=== PATIENT | male | born 1995 | race Caucasian/White ===

== ENCOUNTER 2018-10-11 09:04 | Inpatient (IN) ==
[2018-10-11] MEDS ORDERED: NS 1,000 ML IV ONE ×2 (09:12→19:34)
[2018-10-11] MEDS ORDERED: HUMULIN R 100 UNIT in NS 100 ML IV SCH (09:15)
--- NOTE | 2018-10-11 09:27 | EKG Report ---
Test Performed on : 10/11/2018 09:25:36 AM Test Reason : DKA Blood Pressure : / mmHG Vent. Rate : 105 BPM Atrial Rate : 105 BPM P-R Int : 224 ms QRS Dur : 082 ms QT Int : 312 ms P-R-T Axes : 000 -10 159 degrees QTc Int : 412 ms Sinus tachycardia. with 1st degree AV block. Low voltage QRS ST & T wave abnormality, consider lateral ischemia Abnormal ECG When compared with ECG of 28-AUG-2014 15:24, ID interval has increased Questionable change in QRS axis ST now depressed in Anterior leads Nonspecific T wave abnormality now evident in Inferior leads T wave inversion now evident in Lateral leads Unconfirmed Result
[2018-10-11] MEDS ORDERED: HUMULIN R IV ONE (09:39)
[2018-10-11] MEDS: LEVOPHED 8 MG in D5 1/2 NS 250 ML IV SCH ×3 (09:41→20:19)
[2018-10-11 09:45] LABS: BASO# 0.04 X1000 (0.0-0.2); BASO% 0.2 % (0.0-0.8); EOS# 0.02 X1000 (0.0-0.7); EOS% 0.1 % (0.0-10.0); HEMATOCRIT 37.7 % (42.0-52.0); HEMOGLOBIN 12.3 g/dL (14.0-18.0); IMM GRAN# 0.15 X1000 (0.0-0.04); IMM GRAN% 0.8 % (0.0-0.5); LYMPH# 1.48 X1000 (1.2-3.4); LYMPH% 7.9 % (20.5-51.1); MCH 29.7 PG (27-31); MCHC 32.6 g/dL (33-37); MCV 91.1 FL (81-99); MONO# 1.41 X1000 (0.11-0.59); MONO% 7.5 % (1.7-9.3); MPV 13.3 FL (7.4-10.4); NEUT# 15.74 X1000 (1.4-6.5); NEUT% 83.5 % (42.2-75.2); PLT 266 X1000 (130-400); RBC 4.14 XMIL (4.7-6.1); RDW 17.1 % (11.5-14.5); WBC 18.84 X1000 (4.8-10.8)
[2018-10-11 09:51] LABS: ALLEN TEST NO; BLOOD TYPE ARTERIAL; HCO3-(ACT) 4.7 mmoll (20.0-26.0); METHB 0.5 % (0.0-1.5); O2(CT) 17.5 mL/dL (15.0-23.0); O2HB 98.9 % (95.0-99.0); PO2(98.6) 238 mmHg (60-100); SAMPLE BLOOD; SAO2 100.9 % (95.0-100.0); THB 12.2 g/dL (11.5-17.4)
[2018-10-11 09:53] LABS: URINE SOURCE CLEAN CATCH
[2018-10-11 09:54] LABS: MODALITY NRB
[2018-10-11 09:55] LABS: PCO2(98.6) 13 mmHg (35-45); pH(98.6) 7.01 (7.35-7.45)
[2018-10-11 09:55] LABS: BILIRUBIN URINE NEGATIVE (NEGATIVE); BLOOD URINE TRACE (NEGATIVE); COLOR YELLOW; GLUCOSE URINE >1000 mg/dL (NEGATIVE); KETONE URINE >150 mg/dL (NEGATIVE); LEUKOCYTES URINE NEGATIVE (NEGATIVE); NITRITE URINE NEGATIVE (NEGATIVE); PROTEIN URINE 200 mg/dL (NEGATIVE); SP GRAVITY URINE 1.021; TURBIDITY URINE CLEAR (CLEAR); UROBILINOGEN URINE NORMAL (NORMAL)
[2018-10-11 09:57] LABS: UR EPITHELIAL CELLS <10 /HPF (<10); URINE BACTERIA NEGATIVE /HPF; URINE RBC <10 /HPF (<10); URINE WBC <10 /HPF (<10)
--- NOTE | 2018-10-11 10:00 | Diag Imaging Result Doc PS360 ---
EXAM: CHEST-1 VIEW HISTORY: dka TECHNIQUE: Chest single view COMPARISON: 07/02/2018 FINDINGS: The lungs are well expanded. The heart is enlarged. The vessels are not distended. There are no infiltrates. No effusion identified. There are rods in the thoracic and lumbar spine. IMPRESSION: Cardiomegaly Electronically signed by Kiko Riojas 10/11/2018 9:58 AM
[2018-10-11 10:03] LABS: ACETONE SERUM MODERATE (NEGATIVE)
[2018-10-11 10:15] LABS: AGAP 39; ALB/GLOB RATIO 1.9; ALBUMIN 4.6 g/dL (3.5-5.0); ALKALINE PHOSPHATASE 81 U/L (32-122); BUN 31 mg/dL (8-22); CALCIUM 9.3 mg/dL (8.8-10.2); CHLORIDE 93 mmol/L (98-107); COSMO 312; CREATININE 2.1 mg/dL (0.7-1.2); ESTIMATED GFR 39; GOT 149 U/L (10-34); GPT 111 U/L (10-44); POTASSIUM 5.5 mmol/L (3.5-5.1); SODIUM 138 mmol/L (136-145); TCO2 6 mmol/L (25-35); TOTAL BILIRUBIN 0.73 mg/dL (0.20-1.00)
[2018-10-11 10:16] LABS: GLUCOSE 635 mg/dL (70-104)
[2018-10-11] MEDS ORDERED: SODIUM BICARBONATE 8.4% IV ONE (10:25)
[2018-10-11 10:28] LABS: INR 1.68; PROTIME 21.1 Seconds (11.0-16.0)
[2018-10-11 10:29] LABS: PTT 32.4 Seconds (22.3-41.8)
--- NOTE | 2018-10-11 10:34 | PROVIDER DOCUMENTATION ---
This chart was entered by Leona Gupta Scribe, acting as scribe for Ulises Avalos MD. HPI-General Adult - General Chief Complaint: High Blood Sugar Stated Complaint: dka Time Seen by Provider: 10/11/18 09:09 Source: patient, family, EMS Unable to obtain history due to:: altered Allergies/Adverse Reactions: Patient Allergies Allergy/AdvReac Type Severity Reaction Status Date / Time codeine [Codeine] AdvReac Intermediate Unknown Verified 10/11/18 10:03 hydrocodone [Hydrocodone] AdvReac Intermediate Unknown Verified 10/11/18 10:03 Home Medications: Home Medication List Medication Instructions Recorded Confirmed Last Taken Type Gabapentin 300 mg PO TID 07/10/15 07/02/18 07/02/18 History Polyethylene Glycol 3350 [Miralax] 17 gm PO DAILY 07/10/15 07/02/18 07/02/18 History Quetiapine Fumarate [Seroquel] 250 mg PO HS 07/10/15 07/02/18 07/01/18 History Amoxicillin/Pot Clavulanate 875 mg PO Q12HR #20 tab 07/02/18 Unknown Rx [Augmentin] Benzonatate 200 mg PO TID 07/02/18 07/02/18 07/02/18 History Lisinopril 2.5 mg PO DAILY 07/02/18 07/02/18 07/02/18 History Metformin E.r. [Glucophage Xr] 500 mg PO BID CC 07/02/18 07/02/18 07/02/18 History Metoprolol [Lopressor] 12.5 mg PO DAILY 07/02/18 07/02/18 07/02/18 History Omeprazole [Prilosec] 20 mg PO DAILY 07/02/18 07/02/18 07/02/18 History ROSUVAstatin [Crestor] 20 mg PO QHS 07/02/18 07/02/18 07/01/18 History Sitagliptin Phos/Metformin HCl 1 each PO BID 07/02/18 07/02/18 07/02/18 History [Janumet 50-500 mg Tablet] - History of Present Illness -Gen Adult Nature of Presenting Problems: 23 yom presents to the ed via ems with elevated BGL reading high. per family pt has had increased urination, increased thirst and elevated BGL for 1 week. pt on exam presents with kussmaul respirations, ams. pt is legally blind and deaf so communication is difficult per ems pt had low O2 sat when aos and pt was bagged briefly and O2 sat reached normal limits, pt has been hypotensive but that has improved as well since being in the ed Location of Pain/Injury: reports: none Pain Radiation: reports: no radiation Severity: reports: moderate Onset/Duration: reports: 1 week ago Timing: reports: still present Context/Activities at Onset: reports: light activity Associated Symptoms: reports: malaise, shortness of breath, weakness. denies: back/neck pain, chest pain, fever/chills, nausea, vomiting Similar Symptoms Previously?: Yes (hx of dm) Recently seen or treated by another doctor?: No - Diabetes Related Context Context: reports: high blood sugar, change in mental status, unresponsive, prior DKA hospitalization Review of Systems - Adult - REVIEW OF SYSTEMS - ADULT ROS:: ROS per family Constitutional: reports: fatique. denies: chills, fever Eyes: reports: no symptoms reported Ears, Nose, Mouth & Throat: reports: no symptoms reported Cardiovascular: denies: chest pain, palpitations Respiratory: reports: see HPI, shortness of breath. denies: wheezing Gastrointestinal: denies: abdominal pain, diarrhea, nausea, vomiting Genitourinary: reports: see HPI, frequency Musculoskeletal: reports: muscle weakness. denies: back pain, neck pain Integumentary: reports: no symptoms reported Neurological: denies: dizziness/vertigo, headache/migraines Psychiatric: reports: no symptoms reported Endocrine: reports: see HPI, increased thirst, polyuria Hematologic/Lymphatic: reports: no symptoms reported Allergic/Immunologic: reports: no symptoms reported All Other Systems: Reviewed and Negative Past History - Adult - PAST MEDICAL HISTORY-ADULT Review of Records: reports: Nursing Assessment Review, Medications Reviewed Major Childhood Illnesses: reports: denies history Cardiovascular: reports: denies history Respiratory: reports: denies history Gastrointestinal: reports: denies history Genitourinary: reports: denies history Musculoskeletal: reports: denies history 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, other (freidrich's ataxia; quadriparesis; blindness; severe hearing impairment) Psychiatric: reports: anxiety Endocrine/Immune: reports: Diabetes Other Conditions: reports: blindness, deaf/hard of hearing - PRIOR SURGERIES/PROCEDURES Surgical/Procedure History: reports: back/neck (spinal fusion), other (fedrick ataxia) - IMMUNIZATION STATUS Childhood Immunizations: See Nurse Assessment Flu Vaccine: See Nurse Assessment - FAMILY HISTORY Family History: reviewed, not pertinent - SOCIAL HISTORY Smoking: non-smoker Substance Use: none/never Living Situation: family Physical Exam-General - PHYSICAL EXAM-ADULT Initial Vital Signs Reviewed: Yes - CONSTITUTIONAL General Appearance: moderate distress, thin, lethargic, slow to respond. negative: appears well, alert - EYES Eyes: pink conjunctivae, other (blind) - HEAD, EARS, NOSE, MOUTH & THROAT HENMT: moist mucous membranes - NECK Neck: normal inspection - RESPIRATORY Respiratory: chest non-tender, lungs clear, normal breath sounds, increased rate (23) - CARDIOVASCULAR Cardiovascular: normal peripheral pulses, tachycardia (110) - GASTROINTESTINAL (ABDOMEN) Abdominal Exam: normal bowel sounds, non tender, soft - LYMPHATIC Lymphatic: no adenopathy - MUSCULOSKELETAL Back Exam: no CVA tenderness, no vertebral tenderness Extremity: no pedal edema, no calf tenderness, normal capillary refill - SKIN Integumentary: normal color, normal turgor, warm/dry - PSYCHIATRIC Psych/Mental Status: disoriented x 3, other (pt is legally blind and deaf) Progress - PLAN OF CARE/RESULTS Progress/Plan/Lab Results: Vital Signs - 8 hr 10/11/18 09:17 Temperature 97.5 F L Pulse Rate 110 H Respiratory Rate 23 Blood Pressure 89/54 O2 Sat by Pulse Oximetry 97 Laboratory Results - last 24 hr 10/11/18 10/11/18 10/11/18 09:12 09:27 09:27 WBC 18.84 H RBC 4.14 L Hgb 12.3 L Hct 37.7 L MCV 91.1 MCH 29.7 MCHC 32.6 L RDW Std Deviation 17.1 H Plt Count 266 MPV 13.3 H Immature Gran % (Auto) 0.8 H Neut % (Auto) 83.5 H Lymph % (Auto) 7.9 L Peach % (Auto) 7.5 Eos % (Auto) 0.1 Baso % (Auto) 0.2 Immature Gran # (Auto) 0.15 H Neut # (Auto) 15.74 H Lymph # (Auto) 1.48 Peach # (Auto) 1.41 H Eos # (Auto) 0.02 Baso # (Auto) 0.04 Specimen Type Sample Site pH pCO2 pO2 HCO3 Base Excess Oxyhemoglobin ABG O2 Sat (Calculated) ABG O2 Saturation ABG Carboxyhemoglobin ABG Methemoglobin Srikanth Test A-a O2 Difference Total Hemoglobin Lactate Liter Flow Blood Gas Modality FiO2 % POC Glucose 500 H Urine Source CLEAN CATCH Urine Color YELLOW Urine Turbidity CLEAR Urine pH 6.0 Ur Specific [place] 1.021 Urine Protein 200 A Ur Glucose (Stick) >1000 A Ur Ketones (Stick) >150 A Urine Blood TRACE A Urine Nitrite NEGATIVE Urine Bilirubin NEGATIVE Urobilinogen Dipstick NORMAL Urine Leukocytes NEGATIVE Urine WBC (Auto) <10 Urine RBC (Auto) <10 U Epithel Cells (Auto) <10 Urine Bacteria (Auto) NEGATIVE 10/11/18 09:43 WBC RBC Hgb Hct MCV MCH MCHC RDW Std Deviation Plt Count MPV Immature Gran % (Auto) Neut % (Auto) Lymph % (Auto) Peach % (Auto) Eos % (Auto) Baso % (Auto) Immature Gran # (Auto) Neut # (Auto) Lymph # (Auto) Peach # (Auto) Eos # (Auto) Baso # (Auto) Specimen Type ARTERIAL Sample Site L BRACHIAL pH 7.01 L* pCO2 13 L* pO2 238 H HCO3 4.7 L Base Excess -26.0 L Oxyhemoglobin 98.9 ABG O2 Sat (Calculated) 17.5 ABG O2 Saturation 100.9 H ABG Carboxyhemoglobin 1.50 ABG Methemoglobin 0.5 Srikanth Test NO A-a O2 Difference 459.0 Total Hemoglobin 12.2 Lactate 3.00 H Liter Flow 15.0 Blood Gas Modality NRB FiO2 % 100.0 POC Glucose Urine Source Urine Color Urine Turbidity Urine pH Ur Specific [place] Urine Protein Ur Glucose (Stick) Ur Ketones (Stick) Urine Blood Urine Nitrite Urine Bilirubin Urobilinogen Dipstick Urine Leukocytes Urine WBC (Auto) Urine RBC (Auto) U Epithel Cells (Auto) Urine Bacteria (Auto) Orders Category Date Time Status Finger Stick Blood Sugar (ED) DIRECTED Care 10/11/18 09:12 Active PICC Line Consult Routine Cons 10/11/18 09:34 Active CHEST-1 VIEW [RAD] Stat Exams 10/11/18 09:[address] HEAD W/O CONTRAST [CT] Stat Exams 10/11/18 09:14 Ordered ABG [RESP] Routine Lab 10/11/18 09:43 Completed ACETONE SERUM [CHEM] Stat Lab 10/11/18 09:27 Received CBC WITH ELECTRONIC DIFF [HEME] Stat Lab 10/11/18 09:27 Completed COMPREHENSIVE METABOLIC PANEL [CHEM] Stat Lab 10/11/18 09:27 Received LACTATE, PLASMA [CHEM] Stat Lab 10/11/18 09:27 Received PT [PROTIME WITH INR] [COAG] Stat Lab 10/11/18 09:27 Received PTT [COAG] Stat Lab 10/11/18 09:27 Received TROPONIN T Stat Lab 10/11/18 09:27 Received URINALYSIS [URINALYSIS] Stat Lab 10/11/18 09:27 Completed 0.9% Sodium Chloride Inj [Ns] 1,000 ml Med 10/11/18 09:12 Active IV 999 mls/hr 0.9% Sodium Chloride Inj [Ns] 100 ml Med 10/11/18 09:15 Active Insulin Human Regular [Humulin R] 100 unit IV Per Protocol mls/hr Dextrose 5%-0.45% NaCl Inj [D5 1/2 Ns] 250 ml Med 10/11/18 09:45 Active Norepinephrine [Levophed] 8 mg IV As Directed mls/hr Insulin Human Regular [Humulin R] Med 10/11/18 09:39 Discontinued 10 unit IV NOW ONE EKG [EKG] Stat Ther 10/11/18 09:10 Draft pt is waiting on PICC line placement from PICC team today 1109 pt has NG tube in place and has fecal material coming from NG tube. dr avalos is aware 1128 PICC line team is at bedside with pt Result Diagrams: 10/11/18 09:27 10/11/18 09:27 - REASSESSMENT Reassessment #1 Time Reassessed: 10:01 (BP has increased and pt is resting in bed with family at bedside) Status: improving Reassessment Comment: pt is in DKA/ at bedside Reassessment #2 Time Reassessed: 10:18 Status: unchanged Reassessment Comment: at bedside Reassessment #3 Time Reassessed: 10:48 (pt BP 83/63 HR 133 ) Status: worsening (1050) Reassessment Comment: at bedside pt will be intubated - EKG 1 Time of EKG reading by physician:: 09:25 EKG Read and Signed by:: Ulises Avalos EKG Interpretation (*Must complete 3 of following elements*): Abnormal Rate: 105 Rhythm: sinus tachycardia with 1st deggree av block [place]: normal QRS: other (low voltage qrs) MD Interval: normal ST Wave: normal Comments: st and t wave abnormality, consider lateral ischemia 2 Time of EKG reading by physician:: 10:44 EKG Read and Signed by:: Ulises Avalos EKG Interpretation (*Must complete 3 of following elements*): Abnormal Rate: 118 Rhythm: atrial fib with rvr [place]: normal (indeterminate axis) QRS: other (low voltage qrs) MD Interval: normal Prior EKG Comparison: changes noted Comments: sta nd t wave abnormality, consider anterolateral ischemia - XRAY 1 XRAY: Bilateral XRAY Study: Chest Impression: See EMR Report (EXAM: CHEST-1 VIEW HISTORY: dka TECHNIQUE: Chest single view COMPARISON: 07/02/2018 FINDINGS: The lungs are well expanded. The heart is enlarged. The vessels are not distended. There are no infiltrates. No effusion identified. There are rods in the thoracic and lumbar spine. IMPRESSION: Cardiomegaly Electronically signed by Kiko Riojas 10/11/2018 9:58 AM 10/11/18 0958 Interpreting Physician: Kiko Riojas MD Dictated Date/Time: 10/11/18 0957 cc: Ulises Avalos MD; Tim Leyva Jr, MD) 3 XRAY: Bilateral XRAY Study: Chest Impression: See EMR Report (CHEST-PORTABLE - 10/11/2018 11:14 AM INDICATION: endotracheal tube placement COMPARISON: 9:50 AM FINDINGS: There is a new endotracheal tube in good position at T3-T4. There is a nasogastric tube in good position with the tip in the stomach. Stable cardiomegaly. No infiltrates or edema throughout the lungs. IMPRESSION: Good endotracheal tube and nasogastric tube placement. Electronically signed by Tim Gutierrez 10/11/2018 11:25 AM 10/11/18 1125 Interpreting Physician: Tim Gutierrez MD Dictated Date/Time: 10/11/18 1124 cc: Louise Menendez; Tim Leyva Jr, MD) - CT/MRI 1 CT Study: Head Impression: See EMR Report (CT HEAD W/O CONTRAST - 10/11/2018 INDICATION: AMS COMPARISON: None FINDINGS: The ventricles and sulci are normal in size and contour. No intracranial mass or hemorrhage. The skull is intact. The sinuses mastoids and middle ears are clear. IMPRESSION: Negative exam. This exam was performed using automated exposure control, adjustment of mA or kV according to patient size, and/or use of iterative reconstruction technique Electronically signed by Tim Gutierrez 10/11/2018 11:35 AM 10/11/18 1135 Interpreting Physician: Tim Gutierrez MD Dictated Date/Time: 10/11/18 1134 cc: Ulises Avalos MD; Tim Leyva Jr, MD) - CONSULTS/PCP/HOSPITALIST Notification #1 *Consult/PCP/Hospitalist*: hospitalist dr espinoza Time Discussed: 10:24 Reason/Comments: dka Consult Disposition: Admit Procedures - INTUBATION Time of Intubation: 10:53 Intubation Method: orotracheal Equipment: Glidescope Tube Size (cm): 7.5 Pretreated with 100% Oxygen?: Yes Breath Sounds after Intubation: equal ETT Primary Tube Confirmation: Capnometry CO2 Change, Direct Visualization, Chest Rise and Fall, Tube placement verified on XRAY Intubation Complications: no complications Vent Settings: See Respiratory Therapy Notes - ADDITIONAL PROCEDURES Additional Procedure: OTHER (EJ left side) Departure - Departure Date of Disposition Decision: 10/11/18 Time of Disposition Decision: 11:41 DIAGNOSIS: DKA (diabetic ketoacidoses), A-fib, Sepsis, LFT elevation, Elevated troponin, Renal insufficiency, GI bleed, Hypoxia Disposition: ADMITTED INPATIENT 09 Certified Medical Emergency: Emergent Condition: Serious - Critical Care Note This patient required my direct & personal management of CC.: Yes Total Time (mins): 42 Critical Care Statement: This patient required my direct personal management to treat or rule out processes, the absence of which, could potentiallly result in sudden, clinically significant life or limb threatening deterioration. Attestation - Physician/ WILLARD Attestation Patient care was provided by Advanced Practice Provider:: No The physician spent face to face time with patient:: Yes Advanced Practice Provider documentation review:: Supervising physician onsite and consulted in the evaluation and care of this patient. The physician did have a face to face encounter with the patient. This chart was documented by the indicated scribe, (Leona Gupta Scribe) and accurately reflects the services I performed and decisions made by me, Ulises Avalos MD, as attested by the provider's signature.
[2018-10-11 10:41] LABS: UR AMPHETAMINES QUAL NONE DETECTED (NONE DETECT); UR BARBITUATES QUAL NONE DETECTED (NONE DETECT); UR BENZODIAZEPIN QUAL NONE DETECTED (NONE DETECT); UR CANNABINOIDS QUAL NONE DETECTED (NONE DETECT); UR COCAINE QUAL NONE DETECTED (NONE DETECT); UR METHADONE QUAL NONE DETECTED (NONE DETECT); UR OPIATES QUAL NONE DETECTED (NONE DETECT); UR OXYCODONE QUAL NONE DETECTED (NONE DETECT); UR PCP QUAL NONE DETECTED (NONE DETECT)
[2018-10-11 10:42] LABS: MAGNESIUM 1.9 mg/dL (1.5-2.7); PHOSPHORUS 10.9 mg/dL (2.7-4.5)
[2018-10-11] MEDS ORDERED: AMIDATE ONE (10:45)
[2018-10-11] MEDS ORDERED: QUELICIN ONE (10:46)
[2018-10-11] MEDS ORDERED: SODIUM BICARBONATE 8.4% IV PUSH ONE (10:58)
[2018-10-11] MEDS ORDERED: DIPRIVAN 1% 1,000 MG/100 ML BOTTLE IV SCH (11:00)
[2018-10-11] MEDS ORDERED: VANCOMYCIN IV PER PHARMACY MISC SCH (11:00)
[2018-10-11] MEDS ORDERED: TYLENOL NG PRN (11:08)
[2018-10-11] MEDS ORDERED: ZOFRAN IV PRN (11:08)
[2018-10-11] MEDS ORDERED: SODIUM CHLORIDE 0.9% INJ SCH (11:15)
--- NOTE | 2018-10-11 11:17 | SEPSIS: TISSUE PERFUSION ASSMT ---
Sepsis: Tissue Perfusion Assmt - Physical Exam Assessment Date: 10/11/18 Time Assessment Initialized: 11:00 Vital Signs: Last Vital Signs Temp 97.5 F L 10/11/18 09:17 Pulse 145 H 10/11/18 10:40 Resp 25 H 10/11/18 10:40 BP 86/61 10/11/18 10:37 Pulse Ox 92 L 10/11/18 10:32 Height 5 ft 6 in Weight 125 lb Lung Sounds:: lungs clear Heart Sounds:: Irregular Peripheral Pulse Evaluation:: radial (R): 2+, radial (L): 2+, dorsalis-pedis (R): 1+, dorsalis-pedis (L): 1+ Skin Exam:: pale - Impression Impression:: Tissue Perfusion Inadequate - Plan Plan:: See Orders (levophed/IVFs ordered)
[2018-10-11] MEDS ORDERED: NS 250 ML ONE (11:23)
[2018-10-11] MEDS ORDERED: VERSED ONE (11:24)
--- NOTE | 2018-10-11 11:24 | HISTORY AND PHYSICAL ---
HISTORY OF PRESENT ILLNESS: He has a very attentive family. 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 He has lower lumbar sacral degenerative disk disease with juanito placement. He has severe hearing loss and loss of his eyesight. Today is Tuesday, and he started having nausea on Tuesday and Tuesday some more episodes, but seemed to be getting food down and otherwise unremarkable. This morning, he was found unresponsive. He does run high sugars according to family in the 300s and 400s. He has known diabetes. He is not on insulin. He is on metformin, and he is on some oral hypoglycemics I believe. Found unresponsive and when he came to the emergency room, he had some significant severe metabolic anion gap acidosis and white count was elevated at 18,000 with basically a left shift. He also had blood sugar of 635 and blood gases, pH was 7.01, pCO2 13, PO2 is 238. He seemed to be struggling to move air. So plan is to intubate him and admit him to the ICU. PAST MEDICAL HISTORY FROM FAMILY: 1. Friedreich's ataxia. 2. Hypertrophic cardiomyopathy. 3. Lower lumbar degenerative disk disease with juanito placement and stabilization. 4. Loss of hearing. 5. Loss of eyesight, legally deaf and blind. 6. Diabetes mellitus type 2, not on insulin. ALLERGIES: Codeine and hydrocodone make him very emotional. FAMILY HISTORY: Father they think may have had Friedreich's ataxia, possibly sister. The patient was diagnosed when he was 3. SOCIAL HISTORY: Negative for alcohol or tobacco. Very attentive family. REVIEW OF SYSTEMS: General: Unable to glean from patient, but the family collectively had not noticed any change in weight or significant fever or chills. HEENT: He is already very hard of hearing, legally deaf and blind. Neck: They have not noticed any swelling or neck pain. Respiratory: No increased work of breathing or dyspnea until recently this morning with rapid respirations. Cardiovascular: No chest pain or tachy palpitations. No complaints in that way, but the family did say maybe on Tuesday he complained of some chest pain. Gastrointestinal and Genitourinary: No gross hematuria or dysuria reported. Musculoskeletal/Neurologic: No focal changes. Endocrinologic hemologic: No significant history except for diabetes. PHYSICAL EXAMINATION: GENERAL: He is tachypneic. VITALS: Temperature is 97.5 degrees, pulse 145, appears to be sinus tachycardia. Respirations 25, blood pressure 86/61. Looking at the monitor, it is questionable that he had some atrial fibrillation as well or frequent PACs. No distended neck veins. Carotid, radial, and femoral pulses were symmetrical, 2+. EYES: Conjunctiva is pink. NECK: Supple. CARDIOVASCULAR: Regular rhythm, appears to be sinus tachycardia. PMI nondisplaced. LUNGS: Clear anterolateral. ABDOMEN: Soft. SKIN: Warm and dry. I did not appreciate any rashes or mucosal lesions. LABORATORY AND IMAGING: White count 18,840, hematocrit 37, platelet count 266,000. Sodium 138, potassium 5.5, chloride 93, BUN 31, creatinine 2.1. Blood sugar 635, phosphorus 10.9, magnesium 1.9. AST was 149, ALT was 111, alkaline phosphatase was 81. Troponin 0.984. Albumin 4.6. ProTime is 21, PTT is 32. Urine drug screen did show a moderate acetone level, otherwise negative for opiates, oxycodone, methadone, barbiturates, phencyclidine, amphetamines, benzodiazepines, urine cocaine screen and cannabinoids. Urine showed greater than 1000 blood sugar, ketones greater than 150. Chest x-ray: Cardiomegaly. No definite infiltrates. ASSESSMENT AND PLAN: 1. There appears to be severe diabetic ketoacidosis. I cannot rule out infection and sepsis, so obviously we will need to treat him for both. He will need liberal fluid. We will watch his electrolytes closely. He will need to be intubated to help compensate as he is wearing out and compensate for the metabolic acidosis. Family is aware. We will put on DKA protocol, giving him insulin and he will need to incorporate insulin on discharge and I do not think they will be able to maintain him on oral hypoglycemics anymore. 2. Friedreich's ataxia. Aware. 3. Hypertrophic cardiomyopathy. Aware. 4. Elevated troponin and this may be a kind of class 2 ischemia from the acidosis, but we are going to check serial cardiac enzymes, ask Cardiology help follow and may want to get an echocardiogram just to see how we are doing and see if anything has changed. We will keep check of his magnesium as well as his other electrolytes. We will check his thyroid, T4, TSH, and put him on broad-spectrum antibiotics. At this point we will use Zosyn and vancomycin. cc: Srikanth Banegas MD
--- NOTE | 2018-10-11 11:27 | Diag Imaging Result Doc PS360 ---
CHEST-PORTABLE - 10/11/2018 11:14 AM INDICATION: endotracheal tube placement COMPARISON: 9:50 AM FINDINGS: There is a new endotracheal tube in good position at T3-T4. There is a nasogastric tube in good position with the tip in the stomach. Stable cardiomegaly. No infiltrates or edema throughout the lungs. IMPRESSION: Good endotracheal tube and nasogastric tube placement. Electronically signed by Tim Gutierrez 10/11/2018 11:25 AM
[2018-10-11] MEDS ORDERED: VERSED IV ONE (11:29)
[2018-10-11] MEDS ORDERED: VERSED 100 MG in NS 80 ML IV SCH ×2 (11:30→14:00)
[2018-10-11] MEDS ORDERED: QUELICIN IV ONE (11:33)
[2018-10-11] MEDS ORDERED: AMIDATE IV ONE (11:33)
--- NOTE | 2018-10-11 11:37 | Diag Imaging Result Doc PS360 ---
CT HEAD W/O CONTRAST - 10/11/2018 INDICATION: AMS COMPARISON: None FINDINGS: The ventricles and sulci are normal in size and contour. No intracranial mass or hemorrhage. The skull is intact. The sinuses mastoids and middle ears are clear. IMPRESSION: Negative exam. This exam was performed using automated exposure control, adjustment of mA or kV according to patient size, and/or use of iterative reconstruction technique Electronically signed by Tim Gutierrez 10/11/2018 11:35 AM
[2018-10-11] MEDS ORDERED: SODIUM BICARBONATE 8.4% 100 MEQ in D5W 500 ML IV PRN (12:00)
[2018-10-11] MEDS ORDERED: POTASSIUM CHLORIDE 20% LIQUID PO PRN (12:00)
[2018-10-11] MEDS ORDERED: SODIUM PHOSPHATE 30 MMOL in D5W 250 ML IV PRN (12:00)
[2018-10-11] MEDS ORDERED: POTASSIUM CHLORIDE 20 MEQ/SWI 20 MEQ/100 ML IVPB IV PRN (12:00)
[2018-10-11] MEDS ORDERED: MAGNESIUM SULFATE 2 GM/S.W.I. 2 GM/50 ML IVPB IV PRN (12:00)
[2018-10-11] MEDS ORDERED: TYLENOL PR PRN (12:00)
[2018-10-11] MEDS ORDERED: POTASSIUM CHLORIDE 10% LIQUID PO PRN (12:00)
[2018-10-11] MEDS ORDERED: SODIUM BICARBONATE 8.4% 50 MEQ in D5W 250 ML IV PRN (12:00)
[2018-10-11] MEDS ORDERED: D50W SYRINGE IV PRN (12:00)
[2018-10-11] MEDS ORDERED: NS 3,000 ML ONE (12:01)
[2018-10-11] MEDS: NS 1,000 ML IV SCH ×6 (12:15→16:54)
--- NOTE | 2018-10-11 12:26 | Diag Imaging Result Doc PS360 ---
EXAM: CHEST-1 VIEW HISTORY: picc line placement TECHNIQUE: Chest single view COMPARISON: 11:14 AM FINDINGS: Interval placement of a right-sided PICC line. There are multiple overlying wires and mechanical hardware. However the tip appears to be near the junction of the superior vena cava and right subclavian vein. This should probably be advanced several centimeters. Electronically signed by Kiko Riojas 10/11/2018 12:23 PM
[2018-10-11 12:30] LABS: UR CREAT RANDOM 52.9 mg/dL (14-26)
[2018-10-11 12:36] LABS: ACETONE SERUM MODERATE (NEGATIVE)
[2018-10-11] MEDS: ZOSYN 2.25 GM in NS 50 ML IV SCH ×2 (12:40→21:13)
[2018-10-11 12:49] LABS: HEMOGLOBIN A1C 11.6 % (4.8-6.0)
[2018-10-11 12:54] LABS: AGAP 31; AMYLASE 61 U/L (20-200); BUN 30 mg/dL (8-22); CALCIUM 7.8 mg/dL (8.8-10.2); CHLORIDE 101 mmol/L (98-107); CK PROFILE 195 U/L (24-204); COSMO 309; ESTIMATED GFR 41; LIPASE 50 U/L (13-60); MAGNESIUM 1.5 mg/dL (1.5-2.7); PHOSPHORUS 8.4 mg/dL (2.7-4.5); POTASSIUM 4.3 mmol/L (3.5-5.1); SODIUM 139 mmol/L (136-145); TCO2 7 mmol/L (25-35)
[2018-10-11] MEDS: PROTONIX IV SCH ×2 (12:54→23:47)
[2018-10-11 12:58] LABS: IRON SATURATION 51 %; TIBC 199 ug/dL; TOTAL IRON 102 ug/dL (53-167); UNBOUND IRON 97 ug/dL (112-346)
[2018-10-11] MEDS ORDERED: VANCOMYCIN 1,700 MG in NS 250 ML IV ONE (13:00)
--- NOTE | 2018-10-11 13:02 | CARDIOLOGY CONSULTATION ---
DATE: 10/11/2018 HISTORY OF PRESENT ILLNESS: Cardiology was consulted. The patient is admitted with diabetic ketoacidosis, respiratory failure, is intubated. History was obtained from the chart and discussing with family. The patient has a history of Friedreich's ataxia, cardiomyopathy, with history of heart failure. Patient is followed up at the clinic at [facility]. He was last seen 3 to 4 months back and was at that time also noted to have pericardial effusion. Per family, he had an echocardiogram done again and there was an improvement in his pericardial effusion. They had an appointment to follow up with the oleo hasher and renderer later this month. 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 He is on diabetes medications. He has not been doing well for the last 2 to 3 days, having nausea and was not able to eat either. He was noted to be unresponsive. Sugars, according to family, in the 400s. He is a known diabetic, not on insulin. Patient came to the emergency room. Was noted to be having severe metabolic anion gap acidosis, elevated white count. Blood sugar was elevated at 635. PH of 7.01, pCO2 13, PO2 of 238. Increasing work of breathing was noted. Patient was intubated. REVIEW OF SYSTEMS: A 14 point review of systems could not be obtained. PAST MEDICAL HISTORY: 1. Friedreich's ataxia. 2. Cardiomyopathy. 3. Pericardial effusion. 4. The patient is handicapped, is wheelchair-bound, has loss of eyesight, is legally deaf and blind. 5. Diabetes. 6. Gastroesophageal reflux disease with esophageal dilatation in the past. 7. The patient has had surgery to his back, having had juanito placement for stabilization. ALLERGIES: Allergic to codeine and hydrocodone. He was diagnosed to have Friedreich's ataxia when he was 3. PHYSICAL EXAMINATION: On examination, blood pressure 86/61. Jugular venous pressure could not be assessed. Patient is intubated. First and second heart sounds noted. S3 gallop noted. Lungs: Scattered wheeze, anterolaterally clear. Abdomen was soft. Central nervous system could not be assessed. LABORATORY EXAMINATION: Revealed WBC 18.8, hemoglobin 12.3, hematocrit 37, platelet count of 266,000. Chemistry: Sodium 138, potassium 5.5, BUN 31, creatinine 2.1. AST 149, ALT 111. Troponin abnormal at 0.984. Plasma lactate 3.7. ASSESSMENT AND PLAN: 1. Mr. Taiwo Barrow is a 23-year-old, gentleman with a history of Friedreich's ataxia, cardiomyopathy, history of pericardial effusion, diabetes, is legally deaf and blind, is noted to have elevated blood sugars and respiratory distress. Patient was subsequently admitted. There appears to be diabetic ketoacidosis, is being treated as per protocol. 2. The patient has had cardiomyopathy and was recently diagnosed to have pericardial effusion with improvement, followed by cardiology at [facility]. We will obtain records of the same. Chest x-ray revealed severe cardiomegaly. We will get an echocardiogram to reassess cardiac and valvular function, in addition to assess for pericardial effusion. 3. He is hypotensive. He is on pressors, Levophed. HOME MEDICATIONS: Listed include: 1. Gabapentin. 2. Seroquel 200 at bedtime. 3. Benzonatate. 4. Lisinopril 2.5 mg. 5. Metformin 500 b.i.d. 6. Metoprolol 12.5 mg daily. 7. Omeprazole. 8. Crestor 20. 9. Janumet 50/500 one tablet b.i.d. 10. Antibiotics. He has an abnormal troponin. We will get serial cardiac enzymes. This could be secondary to demand ischemia. How ever given the level of troponin elevation nonqMI is likely. will get serial cardiac enzymes He has abnormal liver function tests, renal functions as well, likely associated with the sepsis. Blood cultures are pending. Urinalysis was positive for ketones. Further cultures are pending. Continue supportive care. We will follow hospital course. cc: Morales Nuñez MD [facility]
[2018-10-11 13:03] LABS: GLUCOSE 559 mg/dL (70-104)
[2018-10-11 13:05] LABS: FREE T4 0.95 ng/dL (0.93-1.70)
[2018-10-11 13:07] LABS: TSH 6.01 uIUmL (0.27-4.20)
--- NOTE | 2018-10-11 13:07 | EKG Report ---
Test Performed on : 10/11/2018 10:44:33 AM Test Reason : afib vs tachycardia Blood Pressure : / mmHG Vent. Rate : 118 BPM Atrial Rate : 120 BPM P-R Int : 000 ms QRS Dur : 084 ms QT Int : 344 ms P-R-T Axes : 000 -08 100 degrees QTc Int : 482 ms Atrial fibrillation. with rapid ventricular response. Indeterminate axis Low voltage QRS ST & T wave abnormality, consider anterolateral ischemia Abnormal ECG When compared with ECG of 11-OCT-2018 09:25, (Unconfirmed) Atrial fibrillation. has replaced Sinus rhythm. Nonspecific T wave abnormality no longer evident in Inferior leads T wave inversion more evident in Anterior leads Nonspecific T wave abnormality has replaced inverted T waves in Lateral leads Unconfirmed Result
[2018-10-11 13:46] LABS: ALLEN TEST NO; BLOOD TYPE ARTERIAL; SAMPLE BLOOD; SRATE 24 BPM; TVOL 500 mL
[2018-10-11 13:50] LABS: BE -21.5 mmoll (-3.0-3.0); HCO3-(ACT) 8.2 mmoll (20.0-26.0); METHB 0.8 % (0.0-1.5); O2(CT) 16.6 mL/dL (15.0-23.0); O2HB 98.1 % (95.0-99.0); PO2(98.6) 331 mmHg (60-100); SAO2 99.7 % (95.0-100.0); THB 11.4 g/dL (11.5-17.4)
[2018-10-11 13:53] LABS: PCO2(98.6) 15 mmHg (35-45); pH(98.6) 7.15 (7.35-7.45)
[2018-10-11 13:54] LABS: MODALITY VENTILATOR
--- NOTE | 2018-10-11 14:39 | Diag Imaging Result Doc PS360 ---
CHEST-1 VIEW - 10/11/2018 2:23 PM INDICATION: picc line placement COMPARISON: 12:15 PM FINDINGS: The right PICC line has been advanced and the catheter tip is now at the lower SVC. The endotracheal tube and nasogastric tubes appear to be in good position. IMPRESSION: Good support line and tube placement. Electronically signed by Tim Gutierrez 10/11/2018 2:37 PM
[2018-10-11] MEDS ORDERED: D5 NS 1,000 ML IV SCH (15:00)
[2018-10-11 15:32] LABS: FERRITIN 38104 ng/mL (30-400)
[2018-10-11 15:32] LABS: BASO# 0.03 X1000 (0.0-0.2); BASO% 0.1 % (0.0-0.8); EOS# 0.01 X1000 (0.0-0.7); HEMATOCRIT 34.1 % (42.0-52.0); HEMOGLOBIN 11.5 g/dL (14.0-18.0); IMM GRAN# 0.12 X1000 (0.0-0.04); IMM GRAN% 0.6 % (0.0-0.5); LYMPH# 2.37 X1000 (1.2-3.4); LYMPH% 11.6 % (20.5-51.1); MCH 29.5 PG (27-31); MCHC 33.7 g/dL (33-37); MCV 87.4 FL (81-99); MONO# 0.75 X1000 (0.11-0.59); MONO% 3.7 % (1.7-9.3); MPV 12.9 FL (7.4-10.4); PLT 226 X1000 (130-400); RDW 16.6 % (11.5-14.5); WBC 20.48 X1000 (4.8-10.8)
[2018-10-11] MEDS ORDERED: CORDARONE 360 MG/D5W 360 MG/200 ML IV.SOLN IV ONE (15:37)
[2018-10-11] MEDS ORDERED: CORDARONE 150 MG/D5W 150 MG/100 ML IV.SOLN IV ONE (15:37)
[2018-10-11] MEDS: ATROVENT NEB INH SCH ×2 (15:38→21:10)
[2018-10-11] MEDS: XOPENEX NEB INH SCH ×2 (15:38→21:10)
--- NOTE | 2018-10-11 16:31 | ECHO REPORT ---
ORDER DATE: 10/11/2018 INTERPRETING PHYSICIAN: Dr. Malagon CLINICAL INDICATIONS: 23-year-old with heart failure, nonischemic cardiomyopathy. M-MODE MEASUREMENTS: Left ventricle end diastole: 4.6 cm. Left ventricle end systole: 4.3 cm. Posterior wall: 1.3 cm. Interventricular septum: 1.2 cm. Left atrium: Not specified here. Aortic root: 2.2 cm. SUMMARY OF 2-DIMENSIONAL IMAGIN. The left ventricular chamber appears to be dilated and the left ventricular systolic function is severely impaired. Visually, ejection fraction in the order of 15%. 2. The patient is in atrial fibrillation. 3. The right ventricle shows mild degree of hypertrophy also as well as the left ventricle. 4. The right ventricular chamber is dilated. 5. Both atria appear to be dilated more so the right than the left. 6. There is suggestion of a catheter in the right atrium. 7. There is a dediv-ag-xnmccffh pericardial effusion without signs of tamponade. 8. The mitral valve shows no significant regurgitation. 9. Pulse wave Doppler of mitral inflow shows single filling wave. 10.The inferior vena cava appears to be upper limits of normal/slightly dilated. 11.The patient appears to be in a low cardiac output state. 12.There is qxth-ul-oaerucao tricuspid valve regurgitation and there is no significant pulmonic valve abnormality. 13.Mild degree of pulmonary valve regurgitation appears to be present. 14.Aortic valve has 3 cusps and there is no regurgitation noted. 15. Consider infiltrative cardiomyopathy in the differential diagnosis of this case (i.e. Fabry's disease). Clinical correlation is recommended. cc: MD Louise Yadav CRNP MTDD
[2018-10-11 16:50] LABS: AGAP 25; BUN 29 mg/dL (8-22); CHLORIDE 108 mmol/L (98-107); COSMO 302; CREATININE 1.4 mg/dL (0.7-1.2); ESTIMATED GFR > 60; GLUCOSE 397 mg/dL (70-104); MAGNESIUM 1.3 mg/dL (1.5-2.7); POTASSIUM 3.3 mmol/L (3.5-5.1); SODIUM 140 mmol/L (136-145); TCO2 7 mmol/L (25-35)
[2018-10-11] MEDS: POTASSIUM CHLORIDE 40 MEQ/SWI 40 MEQ/100 ML IVPB IV PRN (17:38)
[2018-10-11] MEDS: HUMULIN R 100 UNIT in NS 99 ML IV SCH ×2 (18:29→21:57)
[2018-10-11] MEDS ORDERED: NS 1,000 ML IV SCH ×2 (18:45→19:30)
[2018-10-11 19:00] LABS: CALCIUM 8.1 mg/dL (8.8-10.2); CREATININE 1.8 mg/dL (0.7-1.2); MAGNESIUM 1.4 mg/dL (1.5-2.7); POTASSIUM 3.4 mmol/L (3.5-5.1)
[2018-10-11 19:01] LABS: CK INDEX 9.5 (0.0-2.5); CK-MB 27.14 ng/mL (0.0-5.0)
[2018-10-11] MEDS ORDERED: NS 500 ML ONE (19:39)
[2018-10-11 19:48] LABS: ALLEN TEST YES; BE -18.9 mmoll (-3.0-3.0); BLOOD TYPE ARTERIAL; HCO3-(ACT) 10.2 mmoll (20.0-26.0); METHB 0.7 % (0.0-1.5); O2(CT) 16.6 mL/dL (15.0-23.0); O2HB 98.1 % (95.0-99.0); PO2(98.6) 415 mmHg (60-100); SAMPLE BLOOD; SAO2 99.6 % (95.0-100.0); SRATE 24 BPM; THB 11.2 g/dL (11.5-17.4); TVOL 700 mL; pH(98.6) 7.28 (7.35-7.45)
[2018-10-11 19:52] LABS: MODALITY VENTILATOR; PCO2(98.6) 11 mmHg (35-45)
[2018-10-11] MEDS ORDERED: MAGNESIUM SULFATE 2 GM/S.W.I. 2 GM/50 ML IVPB IV ONE (19:52)
[2018-10-11] MEDS ORDERED: DOPAMINE 400 MG/D5W 400 MG/500 ML IV.SOLN IV SCH (20:00)
[2018-10-11] MEDS: DOPAMINE 800 MG/D5W 800 MG/500 ML IV.SOLN IV SCH (20:00)
[2018-10-11] MEDS ORDERED: DOPAMINE 800 MG/D5W 800 MG/500 ML IV.SOLN ONE (20:02)
[2018-10-11] MEDS ORDERED: NEO-SYNEPHRINE 50 MG in NS 250 ML IV SCH (20:15)
--- NOTE | 2018-10-11 21:02 | PULMONOLOGY CONSULTATION ---
DATE: 10/11/2018 REQUESTING PHYSICIAN: Dr. Srikanth Banegas. REASON FOR CONSULTATION: Respiratory failure. HISTORY OF PRESENT ILLNESS: Mr. Mcgee is a 23-year-old who was diagnosed with Friedreich's ataxia at the age of 3. The patient has advanced disease with hearing loss and blindness. The patient has been followed at [facility] for cardiomyopathy. The patient also has diabetes mellitus which is a complication of Friedreich's ataxia. The patient has been ill for the last two days with episodes of nausea and decreased p.o. intake. The patient's blood sugars have been elevated. He was brought to the emergency room with 2 small respirations. He was hypotensive and tachycardic upon arrival. White blood count was elevated. UA revealed elevated sugar and ketones. Chemistry review revealed a blood glucose of 635 and a serum bicarbonate of 6. CT scan of the brain was unremarkable. The patient was intubated and initiated on mechanical ventilation. He has undergone an echocardiogram which reveals an ejection fraction of 15% with a small to moderate pericardial effusion without signs of tamponade. The patient has been hypotensive and has been initiated on Levophed. He has had volume resuscitation. A CVP was placed by this practitioner and is elevated at 24. Dopamine is being added to his current regimen. PAST MEDICAL HISTORY: 1. Friedreich's ataxia as per above. 2. Cardiomyopathy with pericardial effusion, as per above. 3. Status post spinal stabilization with juanito placement. 4. Legally deaf. 5. Legally blind. 6. Type 2 diabetes mellitus. FAMILY HISTORY: Positive for Friedreich's ataxia. SOCIAL HISTORY: Negative for alcohol or tobacco. PHYSICAL EXAMINATION: General: Reveals a frail, cachectic white male on mechanical ventilation. BP 75/56, heart rate 89, respiratory rate 24. Oxygen saturation not trending. HEENT: Pupils are equal. Oropharynx appears clear. Neck: Supple. Chest: Reveals good air entry bilaterally. Cardiac: Distant heart sounds. Irregular rhythm. Abdomen: Soft. Extremities: Cold to the touch. LABORATORIES: Most recent arterial blood gas: pH 7.28, pCO2 of 11, PO2 of 411. White blood count 20,000, hemoglobin 11.5, platelet count 226,000. Most recent electrolytes: Sodium 142, potassium 3.4, chloride 103, bicarbonate 8, BUN 28, creatinine 1.8. Most recent glucose 300, magnesium 1.4. IMPRESSION: A 23-year-old with Friedreich's ataxia who presents with leukocytosis, diabetes mellitus with diabetic ketoacidosis, increased anion gap, acute ventilatory failure due to fatigue and DKA, cardiomyopathy, with profound hemodynamic shock. It is not clear whether his shock is related to the DKA on top of cardiomyopathy or whether he might have an underlying infection. RECOMMENDATIONS: 1. Continue full ventilatory support. 2. Add vasopressors. 3. Continue broad-spectrum antibiotics. 4. Continue DKA protocol. 5. Prognosis is very poor. Chance of survival is probably 20% or less. Family discussions were held, but they do not appear to be prepared for his dying if he does not survive this hospital stay. TIME SPENT: Critical care 1 hour. cc: Dain Arreola MD
[2018-10-11] MEDS ORDERED: NEO-SYNEPHRINE 100 MG in NS 250 ML IV SCH (22:00)
[2018-10-11] MEDS: CORDARONE 540 MG in D5W 289.2 ML IV ONE ×2 (22:11→23:49)
[2018-10-11 22:29] LABS: CALCIUM 8.1 mg/dL (8.8-10.2); CREATININE 1.7 mg/dL (0.7-1.2); MAGNESIUM 2.3 mg/dL (1.5-2.7); POTASSIUM 3.7 mmol/L (3.5-5.1)
[2018-10-12 00:50] LABS: ALLEN TEST YES; BE -15.7 mmoll (-3.0-3.0); BLOOD TYPE ARTERIAL; HCO3-(ACT) 12.7 mmoll (20.0-26.0); METHB 1.1 % (0.0-1.5); O2(CT) 18.8 mL/dL (15.0-23.0); PO2(98.6) 392 mmHg (60-100); SAMPLE BLOOD; SAO2 99.8 % (95.0-100.0); SRATE 24 BPM; THB 12.9 g/dL (11.5-17.4); TVOL 650 mL; pH(98.6) 7.32 (7.35-7.45)
[2018-10-12 00:54] LABS: MODALITY VENTILATOR; PCO2(98.6) 15 mmHg (35-45)
[2018-10-12] MEDS: LEVOPHED 16 MG in D5 1/2 NS 250 ML IV SCH ×2 (01:46→09:52)
[2018-10-12] MEDS: XOPENEX NEB INH SCH ×2 (03:20→09:38)
[2018-10-12] MEDS: ATROVENT NEB INH SCH ×2 (03:21→09:37)
[2018-10-12] MEDS: ZOSYN 2.25 GM in NS 50 ML IV SCH (03:39)
[2018-10-12 03:46] LABS: CALCIUM 7.7 mg/dL (8.8-10.2); CREATININE 2.2 mg/dL (0.7-1.2); MAGNESIUM 2.4 mg/dL (1.5-2.7); POTASSIUM 4.2 mmol/L (3.5-5.1)
[2018-10-12] MEDS ORDERED: PITRESSIN 40 UNIT in NS 100 ML IV SCH (04:30)
[2018-10-12 04:45] LABS: CK INDEX 4.4 (0.0-2.5); CK-MB 31.2 ng/mL (0.0-5.0)
[2018-10-12 04:51] LABS: ALLEN TEST YES; BE -20.6 mmoll (-3.0-3.0); BLOOD TYPE ARTERIAL; HCO3-(ACT) 8.9 mmoll (20.0-26.0); METHB 0.8 % (0.0-1.5); O2(CT) 19.4 mL/dL (15.0-23.0); O2HB 97.6 % (95.0-99.0); PO2(98.6) 244 mmHg (60-100); SAMPLE BLOOD; SAO2 99.2 % (95.0-100.0); SRATE 24 BPM; THB 13.7 g/dL (11.5-17.4); TVOL 650 mL
[2018-10-12 04:56] LABS: MODALITY VENTILATOR; PCO2(98.6) 13 mmHg (35-45); pH(98.6) 7.19 (7.35-7.45)
[2018-10-12] MEDS: POTASSIUM CHLORIDE 40 MEQ/SWI 40 MEQ/100 ML IVPB IV PRN (05:34)
[2018-10-12 06:26] LABS: BASO# 0.03 X1000 (0.0-0.2); BASO% 0.1 % (0.0-0.8); EOS# 0.02 X1000 (0.0-0.7); EOS% 0.1 % (0.0-10.0); HEMATOCRIT 40.3 % (42.0-52.0); HEMOGLOBIN 13.8 g/dL (14.0-18.0); IMM GRAN# 0.08 X1000 (0.0-0.04); IMM GRAN% 0.4 % (0.0-0.5); LYMPH# 1.75 X1000 (1.2-3.4); LYMPH% 8.2 % (20.5-51.1); MCH 29.7 PG (27-31); MCHC 34.2 g/dL (33-37); MCV 86.9 FL (81-99); MONO# 1.77 X1000 (0.11-0.59); MONO% 8.3 % (1.7-9.3); NEUT# 17.63 X1000 (1.4-6.5); NEUT% 82.9 % (42.2-75.2); PLT 156 X1000 (130-400); RBC 4.64 XMIL (4.7-6.1); RDW 17.2 % (11.5-14.5); WBC 21.28 X1000 (4.8-10.8)
[2018-10-12 07:10] LABS: BURR CELLS OCCASIONAL; LYMPHS 10 % (21-51); MONO 6 % (1-9); SEGS 84 % (42-75)
--- NOTE | 2018-10-12 07:30 | Diag Imaging Result Doc PS360 ---
EXAM: CHEST-PORTABLE 10/12/2018 HISTORY: resp failure TECHNIQUE: AP portable at 0649 COMMENT: There is cardiomegaly. There is interstitial pulmonary edema. The latter was not present on 10/11/2018. The endotracheal tube and NG tube remain in place. IMPRESSION: Pulmonary edema. Electronically signed by Aleksandr Maharaj 10/12/2018 7:27 AM
[2018-10-12 07:32] LABS: CALCIUM 8.9 mg/dL (8.8-10.2); CREATININE 2.2 mg/dL (0.7-1.2); MAGNESIUM 2.4 mg/dL (1.5-2.7); POTASSIUM 3.8 mmol/L (3.5-5.1)
[2018-10-12 07:48] LABS: ALB/GLOB RATIO 1.6; ALBUMIN 2.8 g/dL (3.5-5.0); CALCIUM 8.8 mg/dL (8.8-10.2); CREATININE 2.2 mg/dL (0.7-1.2); POTASSIUM 4.4 mmol/L (3.5-5.1); TOTAL BILIRUBIN 0.49 mg/dL (0.20-1.00); TOTAL PROTEIN 4.5 g/dL (6.3-8.3)
[2018-10-12 07:59] LABS: PROTIME > 120.0 Seconds (11.0-16.0)
[2018-10-12 08:01] LABS: INR > 16.00; PTT > 215.0 Seconds (22.3-41.8)
[2018-10-12] MEDS: HUMULIN R 100 UNIT in NS 99 ML IV SCH (08:48)
[2018-10-12] MEDS: DOPAMINE 800 MG/D5W 800 MG/500 ML IV.SOLN IV SCH (09:41)
--- NOTE | 2018-10-12 09:41 | PROGRESS NOTE ---
DATE: 10/12/2018 SUBJECTIVE: Mr. Barrow coded at 6:00 this morning, struggled to keep his blood pressure up. Renal outflow, urine output is diminished. He is on maximum pressors. Appears to be developing acute renal failure as well as liver dysfunction, and suspect maybe going into DIC. Family understands. They coded him for, I think, about 40 minutes. They were able to get a complex back. He is on IV amiodarone. He is intubated, unresponsive. Family at the bedside. OBJECTIVE: Vital Signs: Pulse 84, but has been ranging, wide complex on monitor. Urine output is 800 to 900 mL total from the last shift, but that has diminished since that time, I think less than 20 mL an hour. Blood pressure 148/103. HEENT: Pupils are equal and round. Lungs: Clear in all lung mann. Cardiovascular: Regular rhythm and rate without murmur or S3. Abdomen: Soft. Skin: Warm and dry. IMAGING AND LABORATORY DATA: Blood sugars are 639, 351. Chest x-ray: Pulmonary edema. PLAN: Will continue full force regimen. I do not see any change. cc: Srikanth Banegas MD
[2018-10-12] MEDS ORDERED: EPINEPHRINE SYRINGE ONE ×2 (09:43→12:00)
[2018-10-12] MEDS ORDERED: SODIUM BICARBONATE 8.4% 150 MEQ in D5W 1,000 ML IV SCH (09:45)
[2018-10-12] MEDS ORDERED: EPINEPHRINE 4 MG in NS 250 ML IV SCH ×4 (09:45)
[2018-10-12 09:56] LABS: ALLEN TEST NO; BE -15.5 mmoll (-3.0-3.0); BLOOD TYPE ARTERIAL; HCO3-(ACT) 12.4 mmoll (20.0-26.0); O2(CT) 13.8 mL/dL (15.0-23.0); PCO2(98.6) 31 mmHg (35-45); PO2(98.6) 50 mmHg (60-100); SAMPLE BLOOD; SRATE 24 BPM; THB 12.3 g/dL (11.5-17.4); TVOL 650 mL
[2018-10-12 09:57] LABS: pH(98.6) 7.18 (7.35-7.45)
[2018-10-12 09:58] LABS: MODALITY VENTILATOR
--- NOTE | 2018-10-12 10:03 | EKG Report ---
Test Performed on : 10/12/2018 07:59:10 AM Test Reason : chest pain Blood Pressure : / mmHG Vent. Rate : 097 BPM Atrial Rate : 042 BPM P-R Int : 000 ms QRS Dur : 098 ms QT Int : 482 ms P-R-T Axes : 000 176 094 degrees QTc Int : 612 ms Atrial fibrillation. with premature ventricular or aberrantly conducted complexes. Incomplete right bundle branch block Possible Right ventricular hypertrophy Possible Lateral infarct , age undetermined Abnormal ECG When compared with ECG of 11-OCT-2018 10:44, (Unconfirmed) Incomplete right bundle branch block is now present Borderline criteria for Lateral infarct are now present Confirmed by Loni SALAZAR, Jose ([id number]) on 10/13/2018 8:35:35 AM
[2018-10-12] MEDS ORDERED: ATIVAN IV PRN (10:11)
--- NOTE | 2018-10-12 10:32 | PROGRESS NOTE ---
DATE: 10/12/2018 ADDENDUM: I spent an hour and a half at the bedside. He coded again. We did CPR for close to 20 minutes. We gave him quite a bit of epi and started an epi drip. We gave him some calcium and bicarb. We did get a thready pulse back. We were able to detect with Doppler. Talked with family, and family wants to keep him comfortable and stop. I am concerned about the anoxic injury to the brain. OBJECTIVE: At the present time, very thready pulse and still intubated. He is unresponsive. He remains afebrile. Blood pressure at times has come up above 100 systolic, but most of the time it stayed in the 60s and 70s. Lungs clear anterolateral. We did Ambu bag him for a while, and put him back on the vent. Abdomen is soft. No pedal edema. ASSESSMENT AND PLAN: His multisystem failure liver function is going up from hypoxic liver injury. Renal output is going down. His creatinine is going up. His bicarb went from 8 to 12. We gave him some bicarb after his code. His blood gas was 7.18 at about 08:00 this morning. His pCO2 is 31, PO2 is 50, O2 saturation is 82%, that is on 100%, tidal volume 650, and PEEP is 5. He had an echocardiogram done yesterday. Left ventricular chamber size with reduced systolic function severely impaired and ejection fraction 15%. Head CT reviewed again from yesterday, negative exam. Family would like to make him comfortable, and make him a no code level 1. We will continue present therapy and go for comfort measures. cc: Srikanth Banegas MD
--- NOTE | 2018-10-12 11:02 | PULMONOLOGY PROGRESS NOTE ---
DATE: 10/12/2018 PULMONARY/CRITICAL CARE NOTE: SUBJECTIVE: The patient is on 4 different vasopressors. He sustained a cardiopulmonary arrest earlier this morning. His pulse could not be felt, but can be detected with a Doppler. Family is at the bedside. OBJECTIVE: Vital Signs: He has been afebrile over the last 24 hours. Oxygen saturation not trending. Blood pressure not palpable. Respiratory rate 24. HEENT: Pupils were at midpoint, minimal reactivity. He does have an occasional respiratory attempt. Neck: Supple. Chest: Reveals coarse crackles bilaterally. Cardiac: S1, S2, regular rhythm. Abdomen: Scaphoid and soft. Extremities: Increased peripheral edema. LABORATORIES: Chest x-ray reveals cardiomegaly with new pulmonary edema which is mild. Chemistries: Sodium 147, potassium 4.4, chloride 114, bicarbonate 12, BUN 32, creatinine 2.2, glucose 173. AST 5753, ALT 3362. White blood count 21,200, hemoglobin 13.8, platelet count 156,000. Arterial blood gas: pH 7.19, pCO2 of 13, PO2 of 244 with a lactate of 6.6. PT greater than 120, INR greater than 16, PTT greater than 215. IMPRESSION: A 23-year-old with progressive neurologic illness who has: 1. Intractable cardiogenic shock, on 4 vasopressors. 2. Cardiomyopathy with an ejection fraction of 15%. 3. Hypoxemic respiratory failure. 4. Kidney failure. 5. Liver failure. 6. Diabetic ketoacidosis with better control of sugar. 7. Severe coagulopathy associated with liver failure. DISCUSSION: A 23-year-old with Friedreich's ataxia with cardiomyopathy, progressive neurologic dysfunction, diabetes mellitus, and cardiomyopathy. The patient has sustained a cardiopulmonary arrest. He now has no pulse that can be identified manually despite 4 vasopressors. He has multiorgan failure. He will not survive this hospital stay. Family is at the bedside. I have expressed my wishes to them to stop ongoing CPR efforts so that they can spend time with him. They are having difficulty with this decision. RECOMMENDATION: 1. Continue current ventilatory support. 2. Continue vasopressors. 3. Continue DKA protocol. 4. Continue broad-spectrum antibiotics. 5. His prognosis is extremely poor and he is not going to survive this hospital stay. Family is at the bedside. Ongoing end of life discussions and family support. TIME SPENT: In critical care management, 30+ minutes. cc: Dain Arreola MD
[2018-10-12 11:10] VITALS: BP 78/44
[2018-10-12 11:20] LABS: ALLEN TEST YES; BE -12.4 mmoll (-3.0-3.0); BLOOD TYPE ARTERIAL; HCO3-(ACT) 15.3 mmoll (20.0-26.0); METHB 1.3 % (0.0-1.5); O2(CT) 16.5 mL/dL (15.0-23.0); PCO2(98.6) 24 mmHg (35-45); PO2(98.6) 200 mmHg (60-100); SAMPLE BLOOD; SAO2 99.2 % (95.0-100.0); SRATE 24 BPM; THB 11.8 g/dL (11.5-17.4); TVOL 650 mL; pH(98.6) 7.31 (7.35-7.45)
[2018-10-12 11:26] LABS: MODALITY VENTILATOR
[2018-10-12] MEDS ORDERED: SODIUM BICARBONATE 8.4% ONE (12:00)
[2018-10-12] MEDS ORDERED: CALCIUM CHLORIDE SYRINGE ONE (12:00)
--- NOTE | 2018-10-12 12:44 | DISCHARGE SUMMARY ---
ADMISSION DATE: 10/11/2018 DISCHARGE DATE: 10/12/2018 HOSPITAL COURSE: Patient of Dr. Tim Leyva came in. He has a history of Santos ataxia, cardiomyopathy, congestive heart failure. I think he has had a history of nonischemic cardiomyopathy, congestive heart failure systolic, sacral degenerative disk disease with juanito placement, hearing loss, loss of vision. He started having nausea 5 or 6 days ago and it progressed. This morning found him unresponsive. Sugars were in the 500s, acidotic. [place] he had ketoacidosis and possible sepsis. Struggled to keep his blood pressure up. He was on 5 pressors, giving him liberal fluids. He was intubated. He coded and lost pulse about 6 o'clock this morning, coded for about 40 minutes, able to get a pulse back. Remained unresponsive. Coded again around 9 o'clock in the morning. At this time, the family had requested that we make him a no code and keep him comfortable. He at 12:11 noon on 10/12/2018. cc: Srikanth Banegas MD
[2018-10-12] MEDS ORDERED: NS 1,000 ML ONE (13:09)
[2018-10-12] MEDS: PROTONIX IV SCH (13:26)
--- NOTE | 2018-10-12 13:32 | PROGRESS NOTE ---
DATE: 10/12/2018 This is a late entry critical care progress note for 0613 on 10/12/2018. Mr. Barrow is a 23-year-old, male who has a history of Friedreich's ataxia, hypertrophic cardiomyopathy, and diabetes mellitus type 2. He was admitted yesterday morning, on 10/11/2018, for severe diabetic ketoacidosis. He has been on the DKA protocol. He was also noted on echocardiogram performed to have an ejection fraction of 15%. Shortly after his admission, the patient did go into atrial fibrillation with RVR. He was placed on an amiodarone drip. Throughout the night, he has had problems with continued hypotension as well as elevated heart rate with atrial fibrillation with RVR. Throughout the night, the patient's condition has continued to decline. He is at max dose on 4 pressors of dopamine, Kurt-Synephrine, vasopressin, and Levophed, though he still continued to be hypotensive. At 0613, the patient's nurse did note that he did appear to be in PEA on the monitor. He did not have a palpable pulse. They did call a code blue. They began CPR. ACLS protocol was initiated. We did give ACLS medications of epinephrine IV pushes as well as sodium bicarbonate and calcium chloride. The patient, on repeated pulse and rhythm checks, did continue to have PEA on the monitor. There was no palpable pulse present during pulse checks. At 0626, upon rhythm and pulse check, the patient was noted to have a palpable pulse. Heart sounds were auscultated. The patient was in a tachycardic rhythm which was atrial fibrillation on the monitor, ranging anywhere from 90s to 130s. We did continue with pressors as previously mentioned. We also did give the patient a fluid bolus as well of normal saline. Dr. Gautam, attending physician of the hospitalist service, did respond and was in charge of the patient's resuscitation efforts. He did speak with the family and informed them of the patient's current status. We did repeat arterial blood gases which did show a pH of 7.31, a pCO2 of 24, a PO2 of 200, HCO3 of 15.3, with a base excess of -12.4, and an O2 saturation of 99.2. His lactate was 7.7. After Dr. Gautam spoke with the family, they do wish the patient to remain a Full Code. We will continue to monitor the patient closely, though his condition at this time is critical. Further orders and recommendations pending hospital course, diagnostic studies, and physician evaluation. Dictated by CHRISTIANO Hong for Carlos Gautam MD cc: Carlos Gautam MD
[2018-10-13] MEDS ORDERED: VANCOMYCIN 1,400 MG in NS 250 ML IV SCH (13:00)
== END 2018-10-12 12:11 | disposition expired | DRG 871 ==
LOC: SUPCPDRO → ED 09:04 → EDIPHOLD 11:21 → ICU 13:32
PROVIDERS: ATTEND Emergency Medicine
CPT/HCPCS: 36569; 51702; 70450; 71010; 71045; 80048; 80053; 80061; 80101; 80301; 80307; 80324; 80345; 80346; 80353; 80358; 80361; 80365; 81001; 82009; 82150; 82271; 82330; 82550; 82553; 82570; 82607; 82728; 82746; 82805; 82948; 83036; 83540; 83550; 83605; 83690; 83721; 83735; 83880; 83992; 84100; 84145; 84300; 84439; 84443; 84484; 84540; 85025; 85610; 85730; 86140; 87040; 93005; 93010; 93306; 94003; 94640; 96365; 96366; 96368; 96375; 96376; 99285; 99291; A9270; C9113; G0431; G0434; G0479; G0480; J0171; J0282; J0330; J1265; J2250; J2370; J2543; J3370; J3475; J3480; J7030; J7040; J7050; J7060; J7070; S0164; XXXXX